=== PATIENT | female | born 1980 | race Caucasian/White ===

== ENCOUNTER → 2020-11-29 | Outpatient (CLI) | payer BC, MEDICAID ==
[~2020-11-29] MED LIST: ALBUTEROL SULFAT3 M3 IH; ATIVAN 1MG T1 MG/TAB PO; CARAFATE 1GM1 G PO; COLESTID 1GM1 G PO; DAZIDOX10 MG PO; NORCO 325 MG-51 TAB PO; PERCR 7.5 PO; PRILOSEC 20MG20 MG PO; SKELAXIN 800MG800 MG PO; VIIBRYD10 MG PO; ZOFRAN ODT4 MG PO
== END ==
LOC: COL.RAD 07:11
DX: R10.815 Periumbilic abdominal tenderness (principal); Z90.49 Acquired absence of other specified parts of digestive tract
CPT/HCPCS: Q9967

== ENCOUNTER → 2020-12-14 | Outpatient (CLI) | payer BC, MEDICAID | LOC: COL.RAD 11:48 | DX: N83.201 Unspecified ovarian cyst, right side (principal) ==

== ENCOUNTER 2021-01-24 19:09 | Emergency (ER) | payer BC, MEDICAID ==
[~2021-01-24] VITALS: Ht 162.6 cm; Wt 120.5 kg
[~2021-01-24 19:09] MED LIST changes: -NORCO 325 MG-51 TAB PO; -ZOFRAN ODT4 MG PO
[2021-01-24 21:11] LABS: BASO % 0.2 % (0.0-2.0); EOS # 0.3 (0.0-0.7); EOS % 1.7 % (0-4.0); GRAN # 10.3 (1.4-6.5); HEMATOCRIT 43.2 % (37.0-47.0); HEMOGLOBIN 14.5 g/dl (12.5-16.0); LYMPH # 3.5 (1.2-3.4); LYMPH % 23.3 % (20.0-51.0); MEAN CELL VOLUME 87 fl (80.0-100.0); MEAN CORPUSCULAR HEMOGLOBIN 29 pg (27.0-31.0); MEAN CORPUSCULAR HGB CONC 34 g/dl (33.0-37.0); MEAN PLATELET VOLUME 9.8 fl (7.4-10.4); MONO # 0.8 (0.1-0.6); MONO % 5.4 % (1.7-9.3); PLATELET COUNT 258 K/mm3 (130-400); RED BLOOD COUNT 4.97 M/mm3 (4.10-5.30); REDCELL DISTRIBUTION WIDTH-CV 13.2 % (11.5-14.5)
[2021-01-24 21:26] LABS: COLLECTION METHOD CLEAN CATCH
[2021-01-24 21:32] LABS: ALBUMIN 4.9 gm/dL (3.5-5.0); BILIRUBIN,TOTAL 1.2 mg/dL (0.0-1.0); C-REACTIVE PROTEIN 0.9 mg/dL (0.0-0.9); CALCIUM 9.9 mg/dL (8.4-10.2); CREATININE, serum 0.61 (0.52-1.25); POTASSIUM 4.4 mmol/L (3.4-5.0); TOTAL PROTEIN 8.3 gm/dL (6.4-8.2)
[2021-01-24 21:32] LABS: MUCOUS Present /lpf; PH 7 (5-8); SQUAMOUS EPITHELIAL 0-2 /hpf; URINE APPEARANCE Clear; URINE BACTERIA None Seen /hpf; URINE BILIRUBIN Negative (NEGATIVE); URINE BLOOD Negative (NEGATIVE); URINE COLOR Yellow; URINE GLUCOSE Negative (NEGATIVE); URINE KETONE Negative (NEGATIVE); URINE LEUKOCYTE ESTERASE Negative (NEGATIVE); URINE NITRATE Negative (NEGATIVE); URINE PROTEIN(semi-quant) Negative (NEGATIVE); URINE RBC 0-2 /hpf; URINE UROBILINOGEN Negative (NEGATIVE)
[2021-01-24] MEDS ORDERED: ZOFRAN ODT4 MG PO (23:51)
[2021-01-24] MEDS ORDERED: NORCO 325 MG-51 TAB PO (23:51)
[2021-01-25 00:09] VITALS: BP 118/78; PULSE 80; TEMP 98.1
== END 2021-01-25 00:25 | disposition home or self-care (01) ==
LOC: COL.ER 19:09
PROVIDERS: Emergency Medicine; Personal Emergency Response Attendant
DX: R10.30 Lower abdominal pain, unspecified (principal); R11.2 Nausea with vomiting, unspecified; D72.829 Elevated white blood cell count, unspecified; F41.9 Anxiety disorder, unspecified; Z90.49 Acquired absence of other specified parts of digestive tract; Z79.899 Other long term (current) drug therapy
CPT/HCPCS: J2405; J3010; J7030; Q9967

== ENCOUNTER → 2022-01-08 | Outpatient (CLI) | payer MEDICAID ==
[~2022-01-08] MED LIST changes: +NORCO 325 MG-51 TAB PO; +ZOFRAN ODT4 MG PO
== END ==
LOC: COL.RAD 10:21
DX: M22.41 Chondromalacia patellae, right knee (principal)

== ENCOUNTER 2022-06-09 11:46 | Emergency (ER) | payer BC, MEDICAID ==
[~2022-06-09] VITALS: Ht 162.6 cm; Wt 113.6 kg
[2022-06-09 11:53] VITALS: TEMP 97.8
[2022-06-09] MEDS ORDERED: PERCOCET 325 MG1 TA2 PO (13:09)
[2022-06-09] MEDS ORDERED: MEDROL 4MG DOSPA4 MG PO (13:09)
[2022-06-09] MEDS ORDERED: SKELAXIN 800MG800 MG PO (13:09)
[2022-06-09 13:32] VITALS: BP 126/85; PULSE 69
== END 2022-06-09 13:32 | disposition home or self-care (01) ==
LOC: COL.ER 11:46
DX: M54.50 Low back pain, unspecified (principal); E66.9 Obesity, unspecified; Z68.41 Body mass index [BMI] 40.0-44.9, adult; Z88.5 Allergy status to narcotic agent
CPT/HCPCS: J1885; J2360